=== PATIENT | female | born 1950 | race Caucasian/White ===

== ENCOUNTER 2019-09-09 08:15 | Day surgery (SDC) | payer OTHER ==
[2019-09-09] MEDS ORDERED: Ringers Lactate 1,000 ML IV ONE (09:11)
[2019-09-09] MEDS ORDERED: PROPOFOL 200 MG/20 ML VIAL IV ONE (10:26)
[2019-09-09] MEDS ORDERED: LIDOCAINE 1% MPF 30 ML VIAL ONE (10:26)
[2019-09-09 11:27] VITALS: BP 126/79; TEMP 97.5; O2SAT 98
--- NOTE | 2019-09-09 21:38 | OP ---
Surgeon: Roberto Barbosa MD Procedure To Be Performed: Esophagogastroduodenoscopy. Indications For Procedure: Cirrhosis, hepatocellular carcinoma, evaluate for varices. Plan For Anesthesia: Monitored anesthesia care. Complexity: Average. Technique: After obtaining informed consent from the patient and explaining risks and complications which include, but are not limited to bleeding, infection, perforation, and anesthesia complication, patient was placed in left lateral position, sedation was given. From then on the scope was advanced to the mouth and carefully guided up until the second portion of the duodenum. After the completion of procedure, scope and equipment were withdrawn and procedure terminated in a safe manner. Findings: Esophagus; no gross lesion seen in the upper and mid esophagus. In the distal esophagus s mall grade 1 esophageal varices were seen. Stomach; mild patchy erythema seen in the body and antrum . Biopsies taken. In the antrum, a few nodules with erosions were seen. These are likely mucosal h ypertrophy due to the erosions, however, biopsies were taken. Duodenum; the bulb and second portion appeared normal. Complications: None. Tolerance To Anesthesia: Excellent. Postoperative Diagnosis: Grade 1 esophageal varices, erosive gastritis. Plan: 1.Await pathology results. 2.Oral PPI once a day. 3.Follow up in the GI Clinic. 4.Follow up with [facility] at [facility]. /MIKE Voice ID: [id number] Report ID: [id number]
== END 2019-09-09 11:27 | disposition home or self-care (01) ==
LOC: DS 08:15
PROVIDERS: ATTEND Internal Medicine Gastroenterology
PROC: 0DB68ZX Excision of Stomach, Via Natural or Artificial Opening Endoscopic, Diagnostic (ICD-10-PCS; principal; 2019-09-09 10:15)
DX: K74.60 Unspecified cirrhosis of liver (principal); I85.10 Secondary esophageal varices without bleeding; K29.00 Acute gastritis without bleeding; C22.0 Liver cell carcinoma; C78.00 Secondary malignant neoplasm of unspecified lung; B18.2 Chronic viral hepatitis C; J43.9 Emphysema, unspecified; I10 Essential (primary) hypertension; Z87.891 Personal history of nicotine dependence; Z88.6 Allergy status to analgesic agent; Z80.1 Family history of malignant neoplasm of trachea, bronchus and lung; Z80.8 Family history of malignant neoplasm of other organs or systems
CPT/HCPCS: 88312 ×2; 88305; 43239; J2704; J7120